=== PATIENT | female | born 1965 | race Caucasian/White ===

== ENCOUNTER 2016-09-20 01:24 | Day surgery (SDC) | payer OTHER ==
[~2016-09-20] VITALS: Ht 172.7 cm; Wt 65.8 kg
[2016-09-20] MEDS ORDERED: 0.9% Sodium Chloride 1,000 ML IV PRN (09:13)
[2016-09-20] MEDS ORDERED: Sodium Chloride LOK Flush 10 mL Syringe IV PRN (09:15)
[2016-09-20] MEDS ORDERED: fentaNYL-PF 50 mCg/mL 2 mL Inj IVPUSH PRN (09:15)
[2016-09-20 10:46] VITALS: BP 123/82; PULSE 55; RESP 16; O2SAT 100
[2016-09-20 11:50] VITALS: BP 97/58; PULSE 68; RESP 12; O2SAT 100
[2016-09-20 11:57] VITALS: BP 103/58; PULSE 56; RESP 12; O2SAT 100
[2016-09-20 12:08] VITALS: BP 129/79; PULSE 65; RESP 12; O2SAT 100
--- NOTE | 2016-09-20 16:31 | ENDO ---
[address] [id number] ENDOSCOPY PROCEDURE PATIENT: DEAN MULLIGAN : 1965 MR#: [id number] ADMIT: 09/20/2016 JOB ID: [id number] DATE: 09/20/2016 PROCEDURE: Colonoscopy. INDICATIONS: This is a 50-year-old female reporting for colon cancer screening. EQUIPMENT: PCF H 180 AL. SEDATION: 1. 3.5 mg Versed. 2. 82.5 mcg fentanyl. COMPLICATIONS: None identified. BOWEL PREPARATION: Excellent. PROCEDURAL INFORMATION: After the risks and benefits were explained, written and verbal informed consent was obtained. The patient was brought into the endoscopy suite and placed into the left lateral decubitus position. Sedation was achieved using the above-stated medications with the addition of oxygen via nasal cannula. A digital rectal examination was accomplished and did not elicit any obvious anorectal pathology. The scope was introduced into the rectum and advanced under direct visualization to the level of the cecum, as identified by the appendiceal orifice and ileocecal valve. The scope was slowly withdrawn to carefully examine the mucosa for any defects or lesions. Retroflexed views were avoided in the rectum. Multiple direct views were made through the dentate line for exclusion of pathology. The colon was decompressed. The scope removed from the patient who tolerated the procedure reasonably well. FINDINGS: No significant polyps, mass lesions, or inflammatory features identified throughout. ENDOSCOPIC DIAGNOSES: Visually unremarkable colonoscopy to cecum. RECOMMENDATIONS: Repeat colonoscopy 10 years' time, sooner should symptoms warrant.
== END 2016-09-20 23:59 | disposition home or self-care (01) ==
LOC: END 01:24
PROVIDERS: ATTEND Internal Medicine Gastroenterology
DX: Z12.11 Encounter for screening for malignant neoplasm of colon (principal); Z86.010 Personal history of colon polyps; F41.9 Anxiety disorder, unspecified; K90.0 Celiac disease
CPT/HCPCS: 99153; G0105; G0500; J7030